=== PATIENT | male | born 1975 | race Caucasian/White ===

== ENCOUNTER 2020-02-08 07:31 | Observation (INO) | payer OTHER ==
[~2020-02-08] VITALS: Ht 177.8 cm; Wt 98.0 kg
[2020-02-08] MEDS ORDERED: SODIUM CHLORIDE 0.9% 1000ML 3,000 ML IV ONE (08:35)
[2020-02-08] MEDS ORDERED: ACETAMINOPHEN EXTRA STRENGTH 500 MG TABLET ONE (08:36)
[2020-02-08 08:40] LABS: BASOPHILS % (AUTO) 0.6 % (0.0-5.0); EOSINOPHILS % (AUTO) 3.3 % (0.0-8.0); HEMATOCRIT 48.8 % (42-54); LYMPHOCYTES % (AUTO) 11.5 % (21.0-51.0); MEAN CORPUSCULAR HEMOGLOBIN 30.5 pg (27.0-33.0); MEAN CORPUSCULAR HGB CONC 34.6 g/dL (32.0-36.0); MEAN CORPUSCULAR VOLUME 88.1 fL (79-99); MONOCYTES % (AUTO) 7.9 % (3.0-13.0); NEUTROPHILS % (AUTO) 76.3 % (40.0-77.0); PLATELET COUNT (AUTO) 187 K/uL (130-400); RED BLOOD CELL COUNT(AUTO) 5.54 MIL/uL (4.50-6.20); RED CELL DISTRIBUTION WIDTH 12.4 % (11.0-15.5); WHITE BLOOD COUNT (AUTO) 8.5 K/uL (4.8-10.8)
[2020-02-08 08:44] LABS: CREATININE 1.3 mg/dL (0.5-1.5); POTASSIUM 3.7 mmol/L (3.5-5.1)
[2020-02-08 08:49] LABS: INR 1.03 (0.85-1.15); PARTIAL THROMBOPLASTIN TIME 28.4 SEC (26.3-35.5); PROTHROMBIN TIME 11.1 SEC (9.6-11.6)
[2020-02-08 08:55] LABS: ALBUMIN 4.6 g/dL (3.5-5.0); TOTAL PROTEIN, SERUM 7.8 g/dL (6.0-8.3); TROPONIN I 0.13 ng/mL (0.00-0.06)
[2020-02-08 09:07] LABS: APPEARANCE,URINE Clear (CLEAR); BILIRUBIN,URINE Negative (NEGATIVE); COLOR,URINE Dark Yellow (YELLOW); GLUCOSE, URINE (UA) Negative (NEGATIVE); KETONES,URINE Trace mg/dL (NEGATIVE); LEUKOCYTE ESTERASE ,URINE Trace (NEGATIVE); NITRATE,URINE Negative (NEGATIVE); OCCULT BLOOD,URINE Negative (NEGATIVE); PH,URINE 5.5 (5.0-8.0); PROTEIN,URINE Trace mg/dL (NEGATIVE)
[2020-02-08 09:31] LABS: BACTERIA,URINE None Seen /HPF (None Seen); MUCUS,URINE Many LPF (None Seen); RBC,URINE None Seen /HPF (0-1); SQUAMOUS EPITHELIAL CELL,UR 0-2 /HPF (0-2); WBC,URINE 0-1 /HPF (0-1)
[2020-02-08] MEDS ORDERED: CEFTRIAXONE SODIUM 2 GM VIAL ONE (10:52)
[2020-02-08] MEDS ORDERED: METHYLPREDNISOLONE SOD SUCC 125MG/2ML VIAL ONE (10:52)
[2020-02-08] MEDS ORDERED: ONDANSETRON HCL 4 MG/2 ML VIAL IV PRN (12:30)
[2020-02-08] MEDS: CEFTRIAXONE SODIUM 1 GM IV SCH (12:30)
[2020-02-08] MEDS ORDERED: ACETAMINOPHEN 325 MG TAB PO PRN ×2 (12:30)
[2020-02-08] MEDS: SODIUM CHLORIDE 0.9% 1000ML 1,000 ML IV SCH ×2 (15:20→22:23)
[2020-02-08 15:30] VITALS: BP 134/98
[2020-02-08] MEDS: DOXYCYCLINE 100MG+NS 250ML 250 ML IV SCH (16:04)
[2020-02-08 20:00] VITALS: BP 146/94
[2020-02-08] MEDS: FAMOTIDINE/PF 20 MG/2 ML VIAL IV SCH (20:07)
[2020-02-09 00:30] VITALS: BP 129/85
[2020-02-09] MEDS: DOXYCYCLINE 100MG+NS 250ML 250 ML IV SCH (03:19)
[2020-02-09 04:23] VITALS: BP 148/81
[2020-02-09 05:53] LABS: BASOPHILS % (AUTO) 0.3 % (0.0-5.0); EOSINOPHILS % (AUTO) 0.1 % (0.0-8.0); HEMATOCRIT 43.5 % (42-54); LYMPHOCYTES % (AUTO) 14.3 % (21.0-51.0); MEAN CORPUSCULAR HGB CONC 34.3 g/dL (32.0-36.0); MEAN CORPUSCULAR VOLUME 90.4 fL (79-99); MONOCYTES % (AUTO) 8.7 % (3.0-13.0); NEUTROPHILS % (AUTO) 76.2 % (40.0-77.0); PLATELET COUNT (AUTO) 196 K/uL (130-400); RED BLOOD CELL COUNT(AUTO) 4.81 MIL/uL (4.50-6.20); RED CELL DISTRIBUTION WIDTH 12.5 % (11.0-15.5); WHITE BLOOD COUNT (AUTO) 9.1 K/uL (4.8-10.8)
[2020-02-09 06:09] LABS: ALBUMIN 3.6 g/dL (3.5-5.0); BILIRUBIN,TOTAL 0.6 mg/dL (0.2-1.0); POTASSIUM 4.7 mmol/L (3.5-5.1)
[2020-02-09 07:30] VITALS: BP 121/82
[2020-02-09] MEDS: FAMOTIDINE/PF 20 MG/2 ML VIAL IV SCH (08:04)
[2020-02-09] MEDS: SODIUM CHLORIDE 0.9% 1000ML 1,000 ML IV SCH (08:46)
--- NOTE | 2020-02-09 10:23 | NUR ---
DR. WOODRUFF IS IN TO SEE PATIENT. IS AWARE OF FINDINGS IN RENAL US. HE ORDERED CT PELVIS. KEPT PATIENT NPO FOR TEST.
[2020-02-09] MEDS ORDERED: IOHEXOL-350 75 ML VIAL IV ONE (10:27)
[2020-02-09 11:00] VITALS: BP 141/90
[2020-02-09] MEDS: CEFTRIAXONE SODIUM 1 GM IV SCH (11:34)
--- NOTE | 2020-02-09 11:50 | NUR ---
PT IS BACK FROM CT. AWAITING RESULTS OF CT ABD/PELV WITH CONTRAST.
[2020-02-09] MEDS ORDERED: DIPH25 PO (13:36)
[2020-02-09] MEDS ORDERED: PRED20TA3 PO (13:36)
--- NOTE | 2020-02-09 14:14 | NUR ---
DISCHARGE INSTRUCTIONS GIVEN TO PATIENT. TEACH BACK METHOD USED TO EDUCATE PATIENT ON CDC GUIDELINES FOR COVID-19, S/S TO MONITOR FOR, WHEN TO CALL MD, NEW PRESCRIPTIONS, AND F/U APPOINTMENT. CALLED KARY PAGE RN AND LEFT A DETAILED MESSAGE ON THIS PATIENT BEING DISCHARGED WHILE STILL WAITING FOR COVID-19 RESULTS. PIV REMOVED. TELE PACK REMOVED AND RETURNED. ALL BELONGINGS WERE PACKED. PATIENT IS INSTRUCTED TO CONTINUE SOCIAL DISTANCING AND SELF QUARANTINE FOR 14 DAYS OR UNTIL NEGATIVE RESULTS ARE CALLED TO HIM. PATIENT VERBALIZED UNDERSTANDING.
--- NOTE | 2020-02-09 15:15 | NUR ---
DC PLAN PATIENT IN COVID UNIT. CALLED SPOKE TO PATIENT. SPOUSE INDEPENDENT ABLE TO PERFORM ADL'S. PATIENT HAS NO SERVICES OR DME'S. FEELS SAFE TO RETURN HOME. Addendum: 02/09/20 at 1519 by JAMES POOLE RN CM Amended: Links added.
[2020-02-09] MEDS ORDERED: DOXYCYCLINE HYCLATE 100 MG TABLET PO SCH (21:00)
[2020-02-10 07:13] LABS: HEPATITIS A ANTIBODY IGM Negative (Negative); HEPATITIS B CORE IGM Negative (Negative); HEPATITIS Bs ANTIGEN SCREEN P Negative (Negative)
[2020-02-11 16:09] LABS: ROCKY MT SPOTTED FEVER IGG <1:64 (Neg:<1:64); TYPHUS FEVER AB IGG <1:64 (Neg:<1:64)
== END 2020-02-09 15:05 | disposition home or self-care (01) ==
LOC: EDH 07:31 → OBSVTOIN 12:22 → INTOOBSV 12:22 → EDHIP 12:22 → 2DH 15:20
PROVIDERS: ADMIT Family Medicine; ATTEND Family Medicine
DX: A41.9 Sepsis, unspecified organism (principal); N39.0 Urinary tract infection, site not specified; L02.413 Cutaneous abscess of right upper limb; R74.0 Nonspecific elevation of levels of transaminase and lactic acid dehydrogenase [LDH]; M43.6 Torticollis; R51 Headache; N28.89 Other specified disorders of kidney and ureter
CPT/HCPCS: 36415 ×2; 71045; 74177; 76770; 80053 ×2; 80074; 81001; 82550; 83605 ×2; 83874; 84145; 84484 ×4; 85025 ×2; 85610; 85730; 86757 ×2; 87040 ×2; 87088; 87635; 87804 ×2; 93005; 96365; 96366 ×2; 96375 ×2; 96376; 99285; G0378 ×13; J0696 ×2; J2930; J3490 ×3; J7030 ×3; Q9967

== ENCOUNTER → 2024-12-19 | Outpatient (CLI) | payer OTHER ==
[~2024-12-19] MED LIST: DIPH-1242 PO; PRED20TA3 PO
--- NOTE | 2024-12-19 09:26 | HMCIMG ---
CT calcium scoring Clinical Information: [facility] SCREENING Comparison: None CT Dose Index (CTDI): 13.30 mGy Dose Length Product (DLP): 186.18 total mGy-cm Findings: Calcium score 0. No identifiable calcification. The CT scan is not a complete chest CT. Covered portion is reviewed for incidental findings. No incidental findings seen. IMPRESSION: Calcium score as above. Calcium score reference stable: 0: No identifiable calcification 1- 10: Minimal identifiable calcification 11-100: Mild calcification 101- 400: Moderate calcification 401 and above: Significant calcification Automated exposure control and adequate statistical iterative reconstructions were utilized as dose reduction techniques.
== END | disposition home or self-care (01) ==
LOC: RAH 08:28
PROVIDERS: ATTEND Nurse Practitioner Adult Health
DX: Z13.6 Encounter for screening for cardiovascular disorders (principal)
CPT/HCPCS: 75571